=== PATIENT | male | born 1960 | race Caucasian/White ===

== ENCOUNTER 2023-11-12 11:04 | Emergency (ER) | payer MEDICARE ==
[~2023-11-12] VITALS: Ht 180.3 cm; Wt 76.0 kg
[2023-11-12 11:13] VITALS: BP 130/81
[2023-11-12 11:30] VITALS: BP 106/77
[2023-11-12 12:00] VITALS: BP 119/75
[2023-11-12] MEDS ORDERED: PREDNISONE20 MG PO (14:14)
[2023-11-12] MEDS ORDERED: ZPAK PO (14:14)
[2023-11-12] MEDS ORDERED: ALBUTEROL108 MCG/AC PO (14:14)
[2023-11-12 14:19] VITALS: BP 119/75
== END 2023-11-12 14:30 | disposition home or self-care (01) ==
LOC: ED 11:04
DX: J45.901 Unspecified asthma with (acute) exacerbation (principal); J44.9 Chronic obstructive pulmonary disease, unspecified; Z86.16 Personal history of COVID-19; Z20.822 Contact with and (suspected) exposure to COVID-19